=== PATIENT | male | born 1975 | race African-American/Black ===

== ENCOUNTER 2018-04-30 19:09 | Emergency (ER) | payer OTHER ==
[2018-04-30 19:42] VITALS: BP 140/84
--- NOTE | 2018-04-30 20:10 | ED ---
Shortness of Breath - HPI Summary HPI Summary: 42 yr old male with the complaint of shortness of breath. Onset of shortness of breath over the past week, and today he felt like he couldnt catch his breath. He had some pain in the chest with breathing. He returned from [place] a little over a week ago. He has had some nasal congestion, and cough. He states he has never been short of breath like this, and he is having a hard time laying down in bed due to SOB. - History of Current Complaint Chief Complaint: UCGeneralIllness Time Seen by Provider: 04/30/18 19:53 - Allergy/Home Medications Allergies/Adverse Reactions: Allergies Allergy/AdvReac Type Severity Reaction Status Date / Time No Known Allergies Allergy Verified 04/30/18 19:36 Home Medications: Home Medications Guaifenesin/Dextromethorphan [Mucinex Dm ER 600-30 mg Tablet] 04/30/18 [History ] Oxymetazoline 0.05% NASAL SPR* [Afrin 0.05% NASAL SPRAY*] 04/30/18 [History] PMH/Surg Hx/FS Hx/Imm Hx Infectious Disease History: No Infectious Disease History: Denies: Hx Clostridium Difficile, Hx Hepatitis, Hx Human Immunodeficiency Virus (HIV), Hx of Known/Suspected MRSA, Hx Shingles, Hx Tuberculosis, Hx Known/ Suspected VRE, Hx Known/Suspected VRSA, History Other Infectious Disease, Traveled Outside the in Last 30 Days - Family History Known Family History: Positive: Unknown Family History: NON CONTRIBUTORY - Social History Occupation: Unemployed Alcohol Use: Daily Alcohol Amount: 1 PINT SBIRT done Substance Use Type: Reports: Marijuana Substance Use Comment - Amount & Last Used: none today Smoking Status (MU): Heavy Every Day Tobacco Smoker Type: Cigarettes Amount Used/How Often: 1 ppd Review of Systems Positive: Fatigue Positive: Other - pleuritic chest pain Positive: Shortness Of Breath All Other Systems Reviewed And Are Negative: Yes Physical Exam Triage Information Reviewed: Yes Vital Signs On Initial Exam: Initial Vitals Temp Pulse Resp BP Pulse Ox 97.9 F 92 18 140/84 97 04/30/18 19:37 04/30/18 19:37 04/30/18 19:37 04/30/18 19:37 04/30/18 19:37 Vital Signs Reviewed: Yes Appearance: Positive: Obese Skin: Positive: Warm, Skin Color Reflects Adequate Perfusion Head/Face: Positive: Normal Head/Face Inspection Eyes: Positive: EOMI ENT: Positive: Normal ENT inspection, Pharynx normal, TMs normal. Negative: Nasal congestion, Nasal drainage Neck: Positive: Nontender Respiratory/Lung Sounds: Positive: Clear to Auscultation, Breath Sounds Present Cardiovascular: Positive: RRR. Negative: Murmur Abdomen Description: Positive: Nontender Musculoskeletal: Positive: Strength/ROM Intact Neurological: Positive: Sensory/Motor Intact, Alert, Oriented to Person Place, Time, CN Intact II-III, Normal Gait, Speech Normal Psychiatric: Positive: Normal - Erik Coma Scale Best Eye Response: 4 - Spontaneous Diagnostics - Vital Signs Vital Signs Temp Pulse Resp BP Pulse Ox 04/30/18 19:37 97.9 F 92 18 140/84 97 - Laboratory Lab Statement: Any lab studies that have been ordered have been reviewed, and results considered in the medical decision making process. Course/Dx - Course Course Of Treatment: 42 yr old male with SOB, orthopnea at times this past week all which are new. he is not wheezing. He has declined ambulance transport to ER for PE/SOB work up. He signed out AMA. He is driving himself to the ER. - Diagnoses Provider Diagnoses: Shortness of breath, Hypertension Discharge - Sign-Out/Discharge Documenting (check all that apply): Patient Departure All imaging exams completed and their final reports reviewed: No Studies - Discharge Plan Condition: Good Disposition: AGAINST MEDICAL ADVICE Referrals: Iglesia Hewitt PA [Primary Care Provider] - - Billing Disposition and Condition Condition: GOOD Disposition: Against Medical Advice
== END 2018-04-30 20:08 | disposition left against medical advice (07) ==
LOC: UCCORT 19:09
DX: R06.02 Shortness of breath (principal); I10 Essential (primary) hypertension; R07.1 Chest pain on breathing; R09.81 Nasal congestion; R05 Cough; F17.210 Nicotine dependence, cigarettes, uncomplicated
CPT/HCPCS: 99212; G0463